=== PATIENT | male | born 1990 | race Caucasian/White ===

== ENCOUNTER 2018-05-04 15:52 | Emergency (ER) | payer BC, OTHER, SELFPAY ==
[2018-05-04 17:59] LABS: Absolute Lymphocytes (CBC) 2.4 K/uL (0.7-4.9); Absolute Monocytes 0.8 K/uL (0.1-1.3); Basophils % 0.5 % (0-1.3); Eosinophils % 1.7 % (0-4.4); Lymphocytes % 25.1 % (15.3-44.8); MPV 9.8 fL (7.6-11.3); Monocytes % 8.3 % (3.3-12.3); RBC Red Blood Cell Count 5.64 M/uL (4.33-5.43)
[2018-05-04 18:10] LABS: BUN Blood Urea Nitrogen 14 mg/dL (7-18); Bicarbonate 27 mmol/L (21-32); Glucose Level 92 mg/dL (74-106); Potassium 3.7 mmol/L (3.5-5.1); Sodium Level 139 mmol/L (136-145); Troponin (Emerg Dept Use Only) < 0.02 ng/mL (0.0-0.045)
--- NOTE | 2018-05-04 18:22 | EDPHYS ---
Physician Documentation [facility] Name: Radhames Jay Age: 28 yrs Sex: Male : 1990 Arrival Date: 05/04/2018 Time: 15:56 Bed 20 Private MD: ED Physician Josh Monreal HPI: 05/04 18:16 This 28 yrs old Male presents to ER via Ambulatory with complaints of Chest gs Pain. 18:16 The patient or guardian reports chest pain that is located primarily in the anterior gs chest wall. 18:16 The pain does not radiate. Associated signs and symptoms: Pertinent negatives: gs abdominal pain, shortness of breath. The chest pain is described as a heaviness. Duration: The patient or guardian reports multiple episodes, that are intermittent, that wax and wane, with no pattern, the episodes last approximately 3 minute(s). Modifying factors: The symptoms are alleviated by nothing. the symptoms are aggravated by nothing. Severity of pain: At its worst the pain was moderate in the emergency department the pain has resolved. The patient has experienced similar episodes in the past, several times. The patient has not recently seen a physician. Historical: - Allergies: 16:02 No Known Allergies; ss - Home Meds: 16:02 None [Active]; ss - PMHx: 16:02 None; ss - PSHx: 16:02 None; ss - Immunization history:: Adult Immunizations unknown. - Social history:: Smoking status: Patient uses tobacco products, chewing tobacco. - Ebola Screening: : Patient denies exposure to infectious person Patient denies travel to an Ebola-affected area in the 21 days before illness onset. ROS: 18:16 Psych: Positive for depression, insomnia. gs 18:16 All other systems are negative. Exam: 18:16 Head/Face: Normocephalic, atraumatic. Eyes: Pupils equal round and reactive to light, gs extra-ocular motions intact. Lids and lashes normal. Conjunctiva and sclera are non-icteric and not injected. Cornea within normal limits. Periorbital areas with no swelling, redness, or edema. ENT: Nares patent. No nasal discharge, no septal abnormalities noted. Tympanic membranes are normal and external auditory canals are clear. Oropharynx with no redness, swelling, or masses, exudates, or evidence of obstruction, uvula midline. Mucous membranes moist. Neck: Trachea midline, no thyromegaly or masses palpated, and no cervical lymphadenopathy. Supple, full range of motion without nuchal rigidity, or vertebral point tenderness. No Meningismus. Chest/axilla: Normal chest wall appearance and motion. Nontender with no deformity. No lesions are appreciated. Cardiovascular: Regular rate and rhythm with a normal S1 and S2. No gallops, murmurs, or rubs. Normal PMI, no JVD. No pulse deficits. Respiratory: Lungs have equal breath sounds bilaterally, clear to auscultation and percussion. No rales, rhonchi or wheezes noted. No increased work of breathing, no retractions or nasal flaring. Abdomen/GI: Soft, non-tender, with normal bowel sounds. No distension or tympany. No guarding or rebound. No evidence of tenderness throughout. Back: No spinal tenderness. No costovertebral tenderness. Full range of motion. Skin: Warm, dry with normal turgor. Normal color with no rashes, no lesions, and no evidence of cellulitis. MS/ Extremity: Pulses equal, no cyanosis. Neurovascular intact. Full, normal range of motion. Neuro: Awake and alert, GCS 15, oriented to person, place, time, and situation. Cranial nerves II-XII grossly intact. Motor strength 5/5 in all extremities. Sensory grossly intact. Cerebellar exam normal. Normal gait. 18:16 Constitutional: The patient appears alert, awake. 18:16 ECG was reviewed by the Attending Physician. Vital Signs: 16:02 BP 126 / 90; Pulse 105; Resp 14; Temp 98.4(TE); Pulse Ox 99% on R/A; Weight 104.33 kg; ss Height 6 ft. 1 in. (185.42 cm); Pain 0/10; 17:10 BP 129 / 83; Pulse 90; Resp 18; Pulse Ox 100% on R/A; Pain 0/10; em 18:00 BP 132 / 88; Pulse 92; Resp 18; Pulse Ox 99% on R/A; Pain 0/10; em 16:02 Body Mass Index 30.34 (104.33 kg, 185.42 cm) MDM: 17:13 Patient medically screened. 18:16 Differential diagnosis: anxiety, coronary artery disease chest wall pain, pneumonia. gs HEART Score: History: Slightly Suspicious (0), ECG: Normal (0), Age: < or = 45 years (0), Risk Factors: No Risk Factors Known (0), Troponin: < or = 1 x Normal Limit (0), Total Score =. Data reviewed: vital signs, nurses notes, lab test result(s), EKG, radiologic studies. Counseling: I had a detailed discussion with the patient and/or guardian regarding: the historical points, exam findings, and any diagnostic results supporting the discharge/admit diagnosis, lab results, radiology results, the need for outpatient follow up. 05/04 17:24 Order name: CBC with Diff; Complete Time: 18:13 05/04 17:24 Order name: Basic Metabolic Panel; Complete Time: 18:13 05/04 17:10 Order name: EKG; Complete Time: 17:11 05/04 17:10 Order name: EKG - Nurse/Tech; Complete Time: 17:10 05/04 17:24 Order name: Troponin (emerg Dept Use Only); Complete Time: 18:13 05/04 17:24 Order name: XRAY Chest Pa And Lat (2 Views) 05/04 17:24 Order name: Cardiac monitoring; Complete Time: 17:45 05/04 17:24 Order name: IV Saline Lock; Complete Time: 17:45 05/04 17:24 Order name: Labs collected and sent; Complete Time: 17:45 05/04 17:24 Order name: O2 Per Protocol; Complete Time: 17:45 05/04 17:24 Order name: O2 Sat Monitoring; Complete Time: 17:45 gs EC:16 Rate is 100 beats/min. Rhythm is regular. WI interval is normal. QRS interval is gs normal. T waves are Normal. No ST changes noted. Clinical impression: Normal ECG. Interpreted by me. Administered Medications: No medications were administered Disposition: 05/04/18 18:21 Discharged to Home. Impression: Chest pain, unspecified, Adjustment disorder with anxiety. - Condition is Stable. - Discharge Instructions: Adjustment Disorder, Adult, Nonspecific Chest Pain. - Work release form, Medication Reconciliation Form, Thank You Letter, Antibiotic Education, Prescription Opioid Use form. - Follow up: Private Physician; When: 2 - 3 days; Reason: Re-evaluation by your physician. Follow up: Guero Li MD; When: 2 - 3 days; Reason: Re-evaluation by your physician. Signatures: Dispatcher [employer] EDMS Marcus Banuelos, SECURITY EXPERT SECURITY EXPERT em Rubia Varner RN RN Josh Monreal MD MD Corrections: (The following items were deleted from the chart) 18:22 18:21 05/04/2018 18:21 Discharged to Home. Impression: Chest pain, unspecified; gs Adjustment disorder with anxiety. Condition is Stable. Forms are Medication Reconciliation Form, Thank You Letter, Antibiotic Education, Prescription Opioid Use. Follow up: Private Physician; When: 2 - 3 days; Reason: Re-evaluation by your physician. gs 18:57 18:22 05/04/2018 18:21 Discharged to Home. Impression: Chest pain, unspecified; em Adjustment disorder with anxiety. Condition is Stable. Discharge Instructions: Adjustment Disorder, Adult, Nonspecific Chest Pain. Forms are Medication Reconciliation Form, Thank You Letter, Antibiotic Education, Prescription Opioid Use, Work release form. Follow up: Private Physician; When: 2 - 3 days; Reason: Re-evaluation by your physician. Follow up: Guero Li; When: 2 - 3 days; Reason: Re-evaluation by your physician. gs
--- NOTE | 2018-05-04 18:22 | ER ---
Nurse's Notes [facility] Name: Radhames Jay Age: 28 yrs Sex: Male : 1990 Arrival Date: 05/04/2018 Time: 15:56 Bed 20 Private MD: Diagnosis: Chest pain, unspecified;Adjustment disorder with anxiety Presentation: 05/04 16:01 Presenting complaint: Patient states: "I've been dizzy, it's happened three times and ss my chest is hurting. It isn't hurting now, but it's been going on for a week.". Transition of care: patient was not received from another setting of care. Onset of symptoms was May 04, 2018. Risk Assessment: Do you want to hurt yourself or someone else? Patient reports no desire to harm self or others. Initial Sepsis Screen: Does the patient meet any 2 criteria? No. Patient's initial sepsis screen is negative. Does the patient have a suspected source of infection? No. Patient's initial sepsis screen is negative. Care prior to arrival: None. 16:01 Method Of Arrival: Ambulatory ss 16:01 Acuity: ETIENNE 3 ss Historical: - Allergies: 16:02 No Known Allergies; ss - Home Meds: 16:02 None [Active]; ss - PMHx: 16:02 None; ss - PSHx: 16:02 None; ss - Immunization history:: Adult Immunizations unknown. - Social history:: Smoking status: Patient uses tobacco products, chewing tobacco. - Ebola Screening: : Patient denies exposure to infectious person Patient denies travel to an Ebola-affected area in the 21 days before illness onset. Screenin:10 Abuse screen: Denies threats or abuse. Denies injuries from another. Nutritional ss screening: No deficits noted. Tuberculosis screening: Never had TB. Fall Risk None identified. Assessment: 17:00 General: Appears in no apparent distress. comfortable, Behavior is calm, cooperative. em Pain: Complains of pain in chest Pain does not radiate. Pain currently is 0 out of 10 on a pain scale. at worst was 7 out of 10 on a pain scale. Quality of pain is described as pressure, Pain began 1 week. Neuro: Level of Consciousness is awake, alert, obeys commands, Oriented to person, place, time, situation, Reports dizziness, paresthesias in left arm Denies. Cardiovascular: Denies nausea, shortness of breath, Heart tones S1 S2 present Capillary refill < 3 seconds Patient's skin is warm and dry. Rhythm is sinus rhythm. Respiratory: Airway is patent Respiratory effort is even, unlabored, Respiratory pattern is regular, symmetrical, Breath sounds are clear bilaterally. Denies cough. GI: Abdomen is flat, Patient currently denies nausea, vomiting. Derm: Skin is intact, is healthy with good turgor, Skin is pink, warm \\T\\ dry. Musculoskeletal: Range of motion: intact in all extremities. 17:15 General: The previous assessment is accurate, call light remains within reach.. ss 18:00 Reassessment: Patient appears in no apparent distress at this time. Patient and/or em family updated on plan of care and expected duration. Pain level reassessed. Patient is alert, oriented x 3, equal unlabored respirations, skin warm/dry/pink. Patient denies pain at this time. Vital Signs: 16:02 BP 126 / 90; Pulse 105; Resp 14; Temp 98.4(TE); Pulse Ox 99% on R/A; Weight 104.33 kg; ss Height 6 ft. 1 in. (185.42 cm); Pain 0/10; 17:10 BP 129 / 83; Pulse 90; Resp 18; Pulse Ox 100% on R/A; Pain 0/10; em 18:00 BP 132 / 88; Pulse 92; Resp 18; Pulse Ox 99% on R/A; Pain 0/10; em 16:02 Body Mass Index 30.34 (104.33 kg, 185.42 cm) ED Course: 15:56 Patient arrived in ED. mr 16:02 Triage completed. ss 16:02 Arm band placed on right wrist. ss 16:38 Josh Monreal MD is Attending Physician. gs 16:40 Marcus Banuelos LVN is Primary Nurse. em 17:10 Patient has correct armband on for positive identification. Bed in low position. Call ss light in reach. Side rails up X 1. chronometer assembler on. Pulse ox on. NIBP on. 17:10 Patient maintains SpO2 saturation greater than 95% on room air. ss 17:35 Initial lab(s) drawn, by me, sent to lab. Inserted saline lock: 22 gauge in right em antecubital area, using aseptic technique. Blood collected. 17:48 XRAY Chest Pa And Lat (2 Views) In Process Unspecified. EDMS 18:22 Guero Li MD is Referral Physician. gs 18:55 No provider procedures requiring assistance completed. IV discontinued, intact, em bleeding controlled, No redness/swelling at site. Pressure dressing applied. Administered Medications: No medications were administered Outcome: 18:21 Discharge ordered by MD. gs 18:55 Discharged to home ambulatory. em 18:55 Condition: good 18:55 Discharge instructions given to patient, Instructed on discharge instructions, follow up and referral plans. Demonstrated understanding of instructions, follow-up care. 18:57 Patient left the ED. em Signatures: Dispatcher [employer] EDRI Carla Felix mr Vin, Marcus, ARRANGER ASSEMBLER ARRANGER ASSEMBLER em Rubia Varner, CINTHYA RN Josh Carr MD MD gs
--- NOTE | 2018-05-04 18:39 | RAD REPORT ---
EXAM DESCRIPTION: Brian Mendoza (2 Views)05/04/2018 5:50 pm CLINICAL HISTORY: Chest pain COMPARISON: none FINDINGS: The lungs appear clear of acute infiltrate. The heart is normal size IMPRESSION: No acute abnormalities displayed
--- NOTE | 2018-05-05 09:43 | EKG ---
Test Date: 2018-05-04 Test Time: 16:11:22 College Basketball Coach: MIKE MEASUREMENT RESULTS: Intervals: Rate: 100 CO: 130 QRSD: 90 QT: 320 QTc: 412 [place]: P: 4 CO: 130 QRS: 58 T: 37 INTERPRETIVE STATEMENTS: Normal sinus rhythm Normal ECG No previous ECG available for comparison Electronically Signed On 05-05-18 09:41:55 CDT by Guero Li
== END 2018-05-04 18:57 | disposition home or self-care (01) ==
LOC: ER 15:52
DX: F43.22 Adjustment disorder with anxiety (principal); Z72.0 Tobacco use
CPT/HCPCS: 36415; 71046; 80048; 84484; 85025; 93005; 99285